=== PATIENT | female | born 1985 | race Caucasian/White ===

== ENCOUNTER 2024-03-24 14:35 | Emergency (ER) | payer OTHER, SELFPAY ==
--- NOTE | ~2024-03-24 | US_ITS ---
EXAMINATION: ULTRASOUND PELVIC, COMPLETE CLINICAL INFORMATION: Pelvic pain. Vaginal bleeding. Positive hCG test. COMPARISON: None. TECHNIQUE: Transvaginal: Used to better visualize pelvic structures Transabdominal: Not adequate for visualization Spectral Doppler and color Doppler exam was utilized. LMP: 02/16/2024. LMP 5 weeks 2 days. M[place] November 22, 2024 FINDINGS: UTERUS: Single intrauterine gestation. No pole or yolk sac observed. Mean gestational sac diameter 0.53 cm. This correlates to dating of 5 weeks 0 days consistent with dating by LMP. ADNEXA: Ovarian vascularity:Doppler demonstrates both arterial and venous vascular flow in the right and left ovary. No evidence of ovarian torsion. Right Ovary: 1.9 x 1.9 x 1.4 cm. 2.8 mL Left Ovary: 1.5 x 2.6 x 2.4 cm. 14.1 mL. Corpus luteum cyst measuring 1.7 x 1.5 x 1.9 cm. Cul-de-sac: No Fluid US/US OB pelvic and transvaginal IMPRESSION: Single intrauterine gestation. Mean gestational sac diameter 0.53 cm correlating to dating of 5 weeks 0 days consistent with dating by LMP. No pole or yolk sac observed. Consider follow-up ultrasound in 2-3 weeks.
[2024-03-24 15:11] VITALS: BP 126/83; PULSE 94; RESP 18; TEMP 36.7; O2SAT 100; BMI 21.1
--- NOTE | 2024-03-24 15:11 | ED.PREGNANCY ---
HPI - General Chief complaint: Vaginal Bleeding Stated complaint: vaginal bleeding 1mo preg abd pain Time Seen by Provider: 03/24/24 23:06 Source: patient Mode of arrival: ambulatory Limitations: no limitations History of Present Illness HPI Narrative: Patient is 3 para 2 about 5 weeks noticed lower back discomfort and spotting earlier today no significant abdominal pain no history of miscarriage no vomiting no diarrhea Related Data Allergies Allergy/AdvReac Type Severity Reaction Status Date / Time No Known Allergies Allergy Verified 03/24/24 15:13 Review of Systems Review of Systems: Yes all other systems are reviewed and are negative Physical Exam Vital Signs: Vital Signs: Last Vital Signs Temp 98.0 F 03/24/24 15:11 Pulse 94 03/24/24 15:11 Resp 18 03/24/24 15:11 BP 126/83 03/24/24 15:11 Pulse Ox 100 03/24/24 15:11 O2 Del Method Room Air 03/24/24 15:11 BMI result Body Mass Index 21.1 Appearance: Alert. Oriented X3. No acute distress. Eyes: No pallor or icterus ENT: Pharynx normal. Oral Mucosa moist Neck: Normal inspection. Neck supple. CVS: Normal heart rate and rhythm. Pulses normal. Respiratory: No respiratory distress. Equal air entry bilateral, Abdomen: Soft and nontender. Bowel sounds are present, no mass palpable, no CVA tenderness Skin: Skin warm and dry. Normal skin color. Normal skin turgor. Extremities: No lower extremity edema. No calf tenderness Neuro: Oriented X 3. Course Course Course Narrative: This is an RME: Additional HPI, ROS, PE not included below will be deferred to primary provider. RME assessment and note performed by: Chelle Simon PA-C This is a [id number], , who presents to the ER with a complaint of abdominal pain, low back pain, nausea, and vomiting x 3 days. LMP February 15, +HCG 4 days. 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 03/24/24 16:57 05/25/24 16:55 Labs: Lab Results 03/24/24 03/24/24 Range/Units 16:55 16:57 WBC 11.4 H (4.8-10.8) X10*3/uL RBC 3.96 L (4.20-5.50) X10*6/uL Hgb 13.0 (12.0-16.0) g/dl Hct 37.9 (37.0-47.0) % MCV 95.7 (80.0-98.0) fL MCH 32.8 (27.0-33.0) pg MCHC 34.3 (31.0-35.0) g/dl RDW 12.6 (11.0-16.0) % Plt Count 213 (160-400) X10*3/uL MPV 10.8 (9.4-12.3) fL Immature Gran % (Auto) 0.4 (0.0-0.4) % Neut % (Auto) 81.4 H (45-73) % Lymph % (Auto) 13.0 L (20-40) % Christian % (Auto) 5.0 (2-11) % Eos % (Auto) 0.0 (0-4) % Baso % (Auto) 0.2 (0-2) % Lymph # (Auto) 1.5 (1.2-4.9) X10*3/uL Christian # (Auto) 0.6 (0.1-1.2) X10*3/uL Eos # (Auto) 0.0 (0.0-0.4) X10*3/uL Baso # (Auto) 0.0 (0.0-0.2) X10*3/uL Abs Immat Gran (auto) 0.05 H (0.00-0.03) X10*3/uL Absolute Neuts (auto) 9.3 H (2.0-8.3) x10*3/uL Absolute Nucleated RBC 0.000 (0.0-0.012) X10*3/uL Nucleated RBC % (auto) 0.0 (0.0-0.2) /100WBC Sodium 137 (135-145) mmol/L Potassium 3.7 (3.3-5.1) mmol/L Chloride 106 (96-108) mmol/L Carbon Dioxide 19 L (22-29) mmol/L Anion Gap 16 (12-20) BUN 17 H (9-16) mg/dL Creatinine 0.77 (0.5-1.4) mg/dL Estim Creat Clear Calc 81.9 Estimated GFR > 60 Random Glucose 77 (60-115) mg/dL Calcium 9.5 (8.4-10.2) mg/dL Total Bilirubin 1.0 (0.0-1.0) mg/dL Direct Bilirubin 0.4 (0.0-0.5) mg/dL AST 20 (5-31) U/L ALT 18 (0-31) U/L Alkaline Phosphatase 59 (39-117) U/L Total Protein 7.8 (6.5-8.0) g/dL Albumin 4.6 (3.5-5.0) g/dL Beta HCG, Quant 3207 mIU/mL Urine Color Dark Yellow Urine Appearance Clear Urine pH 5.5 (5.0-9.0) Ur Specific [place] >= 1.030 H (1.005-1.025) Urine Protein Trace (Neg-Trace) mg/dL Urine Glucose (UA) Negative (Negative) mg/dL Urine Ketones 80 (Negative) mg/dL Urine Blood Negative (Negative) Urine Nitrite Negative (Negative) Ur Leukocyte Esterase Negative (Negative) Blood Type A Positive Independent Interpretation I performed an independent interpretation of an: Ultrasound Radiology Impression Discussion of test interpretation with radiology: I have reviewed the radiologist's reading. Discharge Plan Discharge Clinical Impression: Vaginal bleeding affecting early Patient Disposition: Home, Self-Care Instructions: Non-Threatening First Trimester Vaginal Bleed (ED) Additional Instructions: Care and cautions as advised Report to the ER if heavy vaginal bleed/clots Your blood type is A + Interventions: ED Discharge Assessment Last Done: 03/24/24 23:24 Print Language: Emirati
[2024-03-24 17:01] LABS: MANUAL DIFF FLAG NO
[2024-03-24 17:04] LABS: Basophils Percent Auto 0.2 % (0-2); Hematocrit 37.9 % (37.0-47.0); Imm Gran Abs Auto 0.05 X10*3/uL (0.00-0.03); Imm Gran Pct Auto 0.4 % (0.0-0.4); Lymphocytes Absolute Auto 1.5 X10*3/uL (1.2-4.9); Mean Corpuscular HGB Conc 34.3 g/dl (31.0-35.0); Mean Corpuscular Hemoglobin 32.8 pg (27.0-33.0); Mean Corpuscular Volume 95.7 fL (80.0-98.0); Mean Platelet Volume 10.8 fL (9.4-12.3); Monocytes Absolute Auto 0.6 X10*3/uL (0.1-1.2); Neutrophils Absolute Auto 9.3 x10*3/uL (2.0-8.3); Neutrophils Percent Auto 81.4 % (45-73); Platelet Count 213 X10*3/uL (160-400); Red Blood Count 3.96 X10*6/uL (4.20-5.50); Red Cell Distribution Width 12.6 % (11.0-16.0); White Blood Count 11.4 X10*3/uL (4.8-10.8)
[2024-03-24 17:05] LABS: Appearance Urine Clear; Color Urine Dark Yellow; Glucose Urine UA Negative (Negative); Leukocyte Esterase Urine Negative (Negative); Nitrite Urine Negative (Negative); PH 5.5 (5.0-9.0); Specific Gravity - Urine >= 1.030 (1.005-1.025); Urine Blood Negative (Negative); Urine Ketones 80 mg/dL (Negative); Urine Protein Trace mg/dL (Neg-Trace)
[2024-03-24 17:31] LABS: Alanine Aminotransferase 18 U/L (0-31); Albumin Level 4.6 g/dL (3.5-5.0); Alkaline Phosphatase 59 U/L (39-117); Anion Gap 16 (12-20); Aspartate Amino Transferase 20 U/L (5-31); Bilirubin Direct 0.4 mg/dL (0.0-0.5); Blood Urea Nitrogen 17 mg/dL (9-16); Calcium 9.5 mg/dL (8.4-10.2); Carbon Dioxide 19 mmol/L (22-29); Chloride 106 mmol/L (96-108); Creatinine Clr Calc Pharmacy 81.9; Estimated Glomerular Filt Rate > 60; Glucose Random 77 mg/dL (60-115); HCG Quantitative 3207 mIU/mL; Potassium 3.7 mmol/L (3.3-5.1); Sodium 137 mmol/L (135-145); Total Protein 7.8 g/dL (6.5-8.0)
[2024-03-24 23:24] VITALS: BP 122/82; PULSE 86; RESP 15; TEMP 36.8; O2SAT 100
--- OUTSIDE RECORDS SUMMARY | 2024-03-24 23:33 | XMS_ITS | Continuity of Care Document ---
Author Organization [facility] ter Address [address] [place] [id number] Care Team Providers Care [employer] Manager Name Role Phone Elvira Tam Primary Care Physician [phone] Encounter [facility] Date(s): 05/04/21 - 05/05/[address] [id number]- Encounter Diagnosis Hemorrhagic cyst of left ovary(Final) - 05/04/21 Discharge Disposition: A-D/C Home Attending Physician: Luli Farmer MD Admitting Physician: Luli Farmer MD Referring Physician: Not on Staff, Referring MD Allergies, Adverse Reactions, Alerts Substance Reaction Severity Status NKA Active Medications ibuprofen 600 mg oral tablet 600 mg, 1, tablet, By Mouth, Every 6 hours, # 40 tablet, Refills 1, Tot. Refills 1, Maintenance, 05/05/21 9:49:00 EDT, Route to Pharmacy Electronically, [id number], Partial fill upon patient request if the prescription is for a schedule II opi... Start Date: 05/05/21 Status: Ordered Tylenol 325 mg oral tablet 650 mg, 2, tablet, By Mouth, Every 4 hours, PRN, # 50 tablet, Refills 1, Tot. Refills 1, Maintenance, for fever, 05/05/21 9:49:00 EDT, Route to Pharmacy Electronically, [id number], Partial fill upon patient request if the prescription is for a... Start Date: 05/05/21 Status: Ordered Results Orders for Microbiology Reports Name Date Wet Prep 05/05/21 Microbiology Reports TEST:Wet Prep STATUS:Auth (Verified) BODY SITE: SOURCE:VAGINA COLLECTED DATE/TIME:05/05/21 1:22 AM Wet Prep SPECIMEN DESCRIPTION : VAGINAL SPECIMEN SPECIAL REQUESTS : NONE DIRECT EXAM : 4+ WHITE BLOOD CELLS 1+ YEAST NO TRICHOMONAS OBSERVED NO CLUE CELLS OBSERVED REPORT STATUS : FINAL 05/05/2021 Vital Signs Most recent to oldest [Reference Range]: 1 2 3 Weight 50.3 kg (05/04/21 10:23 PM) Oxygen Saturation [94-100 %] 100 % (05/05/21 7:26 AM) 100 % (05/05/21 3:25 AM) 100 % (05/04/21 10:23 PM) Pulse Rate [55-90 bpm] 59 bpm (05/05/21 7:26 AM) 63 bpm (05/05/21 3:25 AM) 76 bpm (05/04/21 10:23 PM) Blood Pressure [90-138/55-84 mm Hg] 113/77mm Hg (05/05/21 7:26 AM) 114/69mm Hg (05/05/21 3:25 AM) 142/93mm Hg *H* (05/04/21 10:23 PM) Respiratory Rate [16-30 br/min] 18 br/min (05/05/21 9:03 AM) 17 br/min (05/05/21 7:26 AM) 18 br/min (05/05/21 3:25 AM) Temperature [96.8-100.4 DegF] 98.2 DegF (05/05/21 7:26 AM) 97.6 DegF (05/05/21 3:25 AM) 98.3 DegF (05/04/21 10:23 PM) Mode of Delivery (Oxygen) Room air (05/05/21 7:26 AM) Room air (05/05/21 3:25 AM) Room air (05/04/21 10:23 PM) Blood pressure sites Arm, right (05/05/21 7:26 AM) Arm, right (05/05/21 3:25 AM) Arm, right (05/04/21 10:23 PM) Temperature Route Oral (05/05/21 7:26 AM) Oral (05/05/21 3:25 AM) Oral (05/04/21 10:23 PM) Weight Obtained Via Bed scale (05/04/21 10:23 PM) Social History Social History Type Response Smoking Status Never (less than 100 in lifetime) entered on: 08/16/19 Sex
== END 2024-03-24 23:53 | disposition home or self-care (01) ==
LOC: HO.ED 23:31
PROVIDERS: Physician Assistant Medical; Emergency Provider Internal Medicine
DX: O26.851 Spotting complicating pregnancy, first trimester (principal); O34.81 Maternal care for other abnormalities of pelvic organs, first trimester; N83.12 Corpus luteum cyst of left ovary; Z3A.01 Less than 8 weeks gestation of pregnancy
CPT/HCPCS: 36415; 76801; 76817; 80048; 80076; 81003; 84702; 85025; 86900; 86901; 99282; 99284